=== PATIENT | female | born 1980 | race Caucasian/White ===

== ENCOUNTER 2021-08-23 09:22 | Emergency (ER) | payer SELFPAY ==
[2021-08-23 09:27] VITALS: BMI 30.1
[2021-08-23] MEDS ORDERED: SODIUM CHLORIDE 1,000 ML IV STA (09:58)
[2021-08-23] MEDS ORDERED: KETOROLAC TROMETHAMINE 15 MG/ML VIAL IVPUSH ONE (09:58)
[2021-08-23] MEDS ORDERED: METOCLOPRAMIDE HCL INJECTION 10 MG/2 ML VIAL IVPB ONE (09:58)
[2021-08-23] MEDS ORDERED: METOCLOPRAMIDE HCL INJECTION 10 MG/2 ML VIAL ONE (10:14)
[2021-08-23] MEDS ORDERED: KETOROLAC TROMETHAMINE 15 MG/ML VIAL ONE (10:15)
[2021-08-23 10:27] LABS: BASO % 1.1 % (0-2.0); EOS % 1.8 % (0-4.5); HEMATOCRIT 34.8 % (32.4-45.2); LYMPH % 19.8 % (8-40); MCH 24.3 pg (25.7-33.7); MCHC 31.7 g/dl (32.0-36.0); MEAN CELL VOLUME 76.6 fl (80-96); MEAN PLT VOLUME 7.5 fl (7.5-11.1); MONO % 6.5 % (3.8-10.2); NEUT % 70.8 % (42.8-82.8); PLATELET COUNT 432 10^3/uL (134-434); RBC 4.54 M/mm3 (3.60-5.2); RDW 22.3 % (11.6-15.6); WHITE BLOOD COUNT 6.8 K/mm3 (4.0-10.0)
[2021-08-23 10:43] LABS: BLOOD UREA NITROGEN 8.4 mg/dL (7-18); CALCIUM 9.2 mg/dL (8.5-10.1)
[2021-08-23 10:45] LABS: HCG,QUALITATIVE URINE Negative
[2021-08-23 10:46] LABS: CREATININE 0.6 mg/dL (0.55-1.3)
[2021-08-23 10:46] LABS: EPI CELLS >36 /uL (0-25.1); HYALINE CASTS 1 /uL (0-3.1); PH,URINE 7.5 (5.0-8.0); URINE APPEARANCE CLEAR; URINE BACTERIA 263 /uL (0-1359); URINE BILIRUBIN NEGATIVE (NEGATIVE); URINE COLOR YELLOW; URINE GLUCOSE (UA) NEGATIVE (NEGATIVE); URINE KETONE NEGATIVE (NEGATIVE); URINE LEUK ESTERASE 1+ (NEGATIVE); URINE NITRITE NEGATIVE (NEGATIVE); URINE PROTEIN NEGATIVE (NEGATIVE); URINE RBC 5 /uL (0-23.9); URINE WBC 64 /uL (0-25.8)
[2021-08-23 10:48] LABS: BILIRUBIN,TOTAL 0.4 mg/dL (0.2-1); TOT PROT 7.7 g/dl (6.4-8.2)
[2021-08-23] MEDS ORDERED: ACETAMINOPHEN/CAFFEINE/BUTALBITAL 1 TAB PO ONE (11:30)
[2021-08-23] MEDS ORDERED: ACETAMINOPHEN/CAFFEINE/BUTALBITAL 1 TAB ONE (11:48)
[2021-08-23 12:20] VITALS: BP 125/65; PULSE 78; TEMP 98.2
[2021-08-23 13:03] LABS: ANISOCYTOSIS 1+; MACROCYTOSIS 0; PLATELET ESTIMATE NORMAL
== END 2021-08-23 12:22 | disposition home or self-care (01) ==
LOC: JER 09:22
PROC: 3E033GC Introduction of Other Therapeutic Substance into Peripheral Vein, Percutaneous Approach (ICD-10-PCS; principal; 2021-08-23)
DX: G44.209 Tension-type headache, unspecified, not intractable (principal); M79.10 Myalgia, unspecified site
CPT/HCPCS: 36415; 80053; 81003; 84703; 85025; 87077; 87086; 99284-25; C9803; U0003; U0005